=== PATIENT | female | born 1950 | race Caucasian/White ===

== ENCOUNTER → 2016-08-20 | Outpatient (CLI) | payer OTHER | LOC: FIMAGING 09:05 | DX: Z12.31 Encounter for screening mammogram for malignant neoplasm of breast (principal) | CPT/HCPCS: G0202 ==

== ENCOUNTER → 2016-12-17 | Outpatient (CLI) | payer OTHER | LOC: FIMAGING 14:38 | PROVIDERS: ATTEND Physician Assistant | DX: M75.112 Incomplete rotator cuff tear or rupture of left shoulder, not specified as traumatic (principal) ==

== ENCOUNTER → 2017-08-21 | Outpatient (CLI) | payer OTHER, MEDICARE | LOC: FIMAGING 10:16 | PROVIDERS: ATTEND Internal Medicine | DX: Z12.31 Encounter for screening mammogram for malignant neoplasm of breast (principal) ==

== ENCOUNTER → 2017-08-21 | Outpatient (CLI) | payer OTHER | LOC: FIMAGING 13:22 | PROVIDERS: ATTEND Internal Medicine | DX: E78.5 Hyperlipidemia, unspecified (principal) ==

== ENCOUNTER → 2017-12-19 | Outpatient (CLI) | payer OTHER, MEDICARE | LOC: FIMAGING 11:43 | PROVIDERS: ATTEND Internal Medicine | DX: R05 Cough (principal) ==

== ENCOUNTER 2017-12-26 16:35 | Emergency (ER) | payer OTHER, MEDICARE ==
[2017-12-26 16:52] VITALS: BP 123/74
--- NOTE | 2017-12-26 17:20 | EDPHY ---
HPI/HX/ROS/PE/MDM Narrative: CHIEF COMPLAINT: Back pain HISTORY OF PRESENT ILLNESS: The patient is a 67 y/o female with a history of L4-5 discectomy and hypertension complaining of right low back pain, onset yesterday. Yesterday she was doing more stretches and exercises and subsequently developed the right back pain. The pain does not feel similar to prior right sciatic nerve pain and the pain is not radiating into her right leg. The pain is making it difficult for her to move or lift her right leg. She denies numbness or tingling in her legs, slipping or falling. After developing this pain she started icing her back and took Advil without relief of her symptoms. Today the pain did not improve and it took her 2 hours to get out of bed. Due to this pain her PCP prescribed her Percocet, which she took at 1:30, 4 hours ago. After taking the Percocet she was able to walk with the assistance of a walker. Since the pain was so great, she decided to present to the emergency department. No fever, chills, chest pain, shortness of breath, palpitations, vomiting, diarrhea, urinary complaints, headache, lightheadedness. REVIEW OF SYSTEMS: Aside from elements discussed in the HPI, a comprehensive 10 system review of systems was reviewed and is negative. 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 HEENT: Atraumatic. Eyes: No icterus, no injection. Mouth: moist mucous membranes. No erythema or lesions. Neck: supple with no adenopathy. LUNGS: Clear to auscultation bilaterally, no wheezes, rhonchi or rales. CARDIAC: Regular rate and rhythm, no rubs, murmurs or gallops. ABDOMEN: Soft, nontender, nondistended, bowel sounds normal. BACK: Tenderness along the lumbar spine; the patient indicates that the area of most pain is around S1. No CVA tenderness. EXTREMITIES: No trauma. No edema. Range of motion is normal throughout. NEURO: Alert and oriented, grossly nonfocal. SKIN: Warm and dry, no rash. PSYCHIATRIC: Normal mentation, no agitation. Portions of this note were transcribed by a medical hospital sales. I personally performed a history, physical exam, medical decision making, and confirmed accuracy of information the transcribed note. ED Course: The patient is a 67 y/o female with a history of L4-5 discectomy and hypertension presenting with right low back pain, onset yesterday. On exam she has tenderness along the lumbar spine; the patient indicates that the area of most pain is around S1. She does not have any sciatic pain. Lumbar and pelvic x- ray ordered; 10mg PO Flexeril, 600mg PO Gabapentin, and lidocaine patch administered. 1834: There are no acute findings on patient's lumbar spine and pelvic x-rays. 1835: Reassessed patient and discussed imaging findings. I have prescribed her Flexeril and a Medrol-dose pack for her pain. She already has a prescription for Percocet. Return precautions provided; patient is comfortable with this plan. MDM: Diff dx for patient low back pain considered including but not limited to musculoskeletal causes, occult fracture, herniated disc, nerve compression, epidural abscess, discitis, cauda equina syndrome. - Data Points Imaging Results: Imaging Impressions Lumbar Spine X-Ray 12/26/17 17:26 Impression: 1. No acute findings in the lumbar spine. 2. Degenerative change and spondylolistheses, with moderate vertebral spondylosis at L3-L4. Pelvis X-Ray 12/26/17 17:27 Impression: No acute osseous findings. Imaging: Discussed imaging studies w/ scraper loader operator Radiologist, I viewed and interpreted images myself Medications Given: Discontinued Medications Cyclobenzaprine HCl (Flexeril) 10 mg PO EDNOW ONE Stop: 12/26/17 17:28 Last Admin: 12/26/17 17:32 Dose: 10 mg Cyclobenzaprine HCl (Flexeril 10 Mg Prepack#3) 1 btl TAKEHOME EDNOW ONE Stop: 12/26/17 18:41 Last Admin: 12/26/17 19:03 Dose: 1 btl Dexamethasone (Decadron) 8 mg PO EDNOW ONE Stop: 12/26/17 18:41 Last Admin: 12/26/17 19:03 Dose: 8 mg Gabapentin (Neurontin) 600 mg PO EDNOW ONE Stop: 12/26/17 17:28 Last Admin: 12/26/17 17:32 Dose: 600 mg Miscellaneous Medication (Icy Hot Lidocaine/Menthol 4%/1% Patch) 1 patch TD EDNOW ONE Stop: 12/26/17 17:28 Last Admin: 12/26/17 17:32 Dose: 1 patch General Time Seen by Provider: 12/26/17 17:14 Initial Vital Signs: Initial Vital Signs Temperature (C) 37.2 C 12/26/17 16:50 Heart Rate 101 H 12/26/17 16:50 Respiratory Rate 16 12/26/17 16:50 Blood Pressure 123/74 H 12/26/17 16:50 O2 Sat (%) 94 12/26/17 16:50 O2 Delivery Mode Room Air Allergies/Adverse Reactions: Sulfa (Sulfonamide Antibiotics) Allergy (Intermediate, Verified 12/26/17 16:48) Rash amoxicillin trihydrate [From Augmentin] Allergy (Verified 12/26/17 16:48) Anaphylaxis morphine Allergy (Verified 12/26/17 16:48) Itching Penicillins Allergy (Verified 12/26/17 16:48) Hives potassium clavula *RETIRED-12/30/11 [From Augmentin] Allergy (Verified 12/26/17 16:48) Anaphylaxis Home Medications: Medication Instructions Recorded CALCIUM CARBONATE/VITAMIN D3 1 each PO 04/18/12 [CALCIUM + D 600 MG TABLET] ESCITALOPRAM OXALATE [Lexapro] 20 mg PO HS 04/18/12 Estradiol/Norethindrone Acet PO DAILY06 04/18/12 [Activella 1 mg-0.5 mg Tablet] Olmesartan Medoxomil [Benicar 5 mg 5 mg PO DAILY06 04/18/12 (RX)] Pantoprazole Sodium [Protonix 40mg 40 mg PO DAILY06 04/18/12 (RX)] Celebrex PO PRN 12/19/15 Fish Oil PO DAILY 12/19/15 Wellbutrin 150mg SR (*) PO BID 12/19/15 Cyclobenzaprine [Flexeril 10 MG 10 mg PO TID PRN #15 tab 12/26/17 (*)] Percocet 10-325 mg Tablet 12/26/17 methylPREDNISolone [Medrol Dose 4 mg PO DAILY #1 each 12/26/17 Luis Enrique] Departure - Departure Disposition: Home, Routine, Self-Care Clinical Impression: Back pain Qualifiers: Back pain location: low back pain Chronicity: acute Back pain laterality: right Sciatica presence: without sciatica Qualified Code(s): M54.5 - Low back pain Condition: Good Instructions: Back Pain (ED), Lower Back Exercises (ED) Additional Instructions: Mainstay of therapy is rest, ice, anti-inflammatories, pain medications, and muscle relaxants as much as possible. Apply ice for 20-30 minutes every 2-3 hours for the next 48 hours. After 48 hours, a heating pad or hot tub may feel better. Use ibuprofen 600 mg every 6-8 hours on a regular basis to provide pain relief and anti-inflammatory effects. Okay to use Percocet as needed for severe pain. Use Flexeril 10 mg up to 3 times a day for muscle spasm. Take the Medrol dose pack as prescribed. Followup with the physician as directed. Consider physical therapy or chiropractic followup. Return to the emergency department or seek care urgently if you have worsening pain, pain radiating into the legs, weakness, numbness or tingling, difficulties with bowel or bladder, or other concerns. Referrals: Lupillo Payton MD [Primary Care Provider] - As per Instructions Prescriptions: Cyclobenzaprine [Flexeril 10 MG (*)] 10 mg PO TID PRN #15 tab PRN Reason: Spasms methylPREDNISolone [Medrol Dose Luis Enrique] 4 mg PO DAILY #1 each Report Scribed for: Rut Apodaca Report Scribed by: Adamaris Aleman Date of Report: 12/26/17 Time of Report: 17:19
[2017-12-26] MEDS ORDERED: LIDOCAINE 4%/MENTHOL 1% PATCH TD ONE (17:27)
[2017-12-26] MEDS ORDERED: CYCLOBENZAPRINE 10 MG TAB PO ONE (17:27)
[2017-12-26] MEDS ORDERED: GABAPENTIN 300 MG CAP PO ONE (17:27)
[2017-12-26] MEDS ORDERED: DEXAMETHASONE 4 MG TAB PO ONE (18:40)
[2017-12-26] MEDS ORDERED: CYCLOBENZAPRINE 10MG PREPACK#3 BTL TAKEHOME ONE (18:40)
[2017-12-26] MEDS ORDERED: PATCH REMOVAL 1 EA PATCH TD SCH (21:00)
== END 2017-12-26 18:49 | disposition home or self-care (01) ==
DX: M54.5 Low back pain (principal)

== ENCOUNTER → 2018-01-01 | Outpatient (CLI) | payer OTHER, MEDICARE | LOC: FIMAGING 18:44 | PROVIDERS: ATTEND Internal Medicine | DX: M51.36 Other intervertebral disc degeneration, lumbar region (principal); M48.062 Spinal stenosis, lumbar region with neurogenic claudication ==

== ENCOUNTER 2018-01-07 17:12 | Emergency (ER) | payer OTHER, MEDICARE ==
[2018-01-07 17:20] VITALS: BP 132/73
--- NOTE | 2018-01-07 17:44 | EDPHY ---
H & P Stated Complaint: back pain 2 weeks finished prednisone out of percocet not better Time Seen by Provider: 01/07/18 17:38 - Personal History Current Tetanus Diphtheria and Acellular Pertussis (TDAP): Unsure - Medical/Surgical History Hx Asthma: No Hx Chronic Respiratory Disease: No Hx Diabetes: No Hx Cardiac Disease: No Hx Renal Disease: No Hx Cirrhosis: No Hx Alcoholism: No Hx HIV/AIDS: No Hx Splenectomy or Spleen Trauma: No Other PMH: HTN, - Social History Smoking Status: Never smoked Constitutional: Initial Vital Signs Temperature (C) 37 C 01/07/18 17:17 Heart Rate 104 H 01/07/18 17:17 Respiratory Rate 17 01/07/18 17:17 Blood Pressure 132/73 H 01/07/18 17:17 O2 Sat (%) 96 01/07/18 17:17 O2 Delivery Mode Room Air Allergies/Adverse Reactions: Sulfa (Sulfonamide Antibiotics) Allergy (Intermediate, Verified 01/07/18 17:15) Rash amoxicillin trihydrate [From Augmentin] Allergy (Verified 01/07/18 17:15) Anaphylaxis potassium clavula *RETIRED-12/30/11 [From Augmentin] Allergy (Verified 01/07/18 17:15) Anaphylaxis Home Medications: Medication Instructions Recorded CALCIUM CARBONATE/VITAMIN D3 1 each PO 04/18/12 [CALCIUM + D 600 MG TABLET] ESCITALOPRAM OXALATE [Lexapro] 20 mg PO HS 04/18/12 Estradiol/Norethindrone Acet PO DAILY06 04/18/12 [Activella 1 mg-0.5 mg Tablet] Olmesartan Medoxomil [Benicar 5 mg 5 mg PO DAILY06 04/18/12 (RX)] Pantoprazole Sodium [Protonix 40mg 40 mg PO DAILY06 04/18/12 (RX)] Celebrex PO PRN 12/19/15 Fish Oil PO DAILY 12/19/15 Wellbutrin 150mg SR (*) PO BID 12/19/15 Cyclobenzaprine [Flexeril 10 MG 10 mg PO TID PRN #15 tab 12/26/17 (*)] oxyCODONE IR [Oxycodone Ir (*)] 5 - 10 mg PO Q6 PRN #30 tab 01/07/18 Medical Decision Making ED Course/Re-evaluation: CHIEF COMPLAINT: Back pain HISTORY OF PRESENT ILLNESS: This patient is a 67 year old female with history of hypertension complaining of back pain. About two weeks ago, she developed low back pain after frequent coughing associated with bronchitis. This discomfort became increasingly severe and she was evaluated in the ED. X-ray negative at that time; she took a Medrol Dosepak and Flexeril as well as Percocet for pain relief which helped relieve her symptoms temporarily. Her PCP ordered an MRI and relayed the results, she understood there was nothing too serious and her pain should resolve soon. Since that time however, her pain has become more severe and she ran out of her prescription for Percocet. She is nearly immobile due to pain and has been unable to go about her usual activities. Today, the pain began to radiate from her low back down both legs to her knees, and she presents for evaluation. She had a prior microdiscectomy with Dr. Hansen, neurosurgeon, and tried to schedule an appointment with his office but was unable to be seen until mid January. She denies any recent trauma. No headache, lightheadedness, chest pain , shortness of breath, incontinence of bladder or bowels, or other associated symptoms. REVIEW OF SYSTEMS: A 10 point review of systems was performed and is negative with the exception of the elements mentioned in the history of present illness. PHYSICAL EXAM: HR, BP, O2 Sat, RR. Temp noted General Appearance: Alert, well hydrated, appropriate, and non-toxic appearing. Head: Atraumatic without scalp tenderness or obvious injury Eyes: Pupils equal, round, reactive to light and accommodation, EOMI, no trauma , no injection. Ears: Clear bilaterally, no perforation, normal landmarks Nose: Atraumatic, no rhinorrhea, clear. Throat: There is no erythema or exudates, no lesions, normal tonsils, mucus membranes moist. Neck: Supple, 2+ carotid upstroke, nontender, no lymphadenopathy. Respiratory: No retractions, no distress, no wheezes, and no accessory muscle use. Lungs are clear to auscultation bilaterally. Cardiovascular: Regular rate and rhythm, no murmurs, rubs, or gallops. Bilateral carotid, radial, dorsalis pedis, and posterior tibial pulses intact. Good capillary refill all extremities. Gastrointestinal: Abdomen is soft, nontender, non-distended, no masses, no rebound, no guarding, no peritoneal signs. Musculoskeletal: Normal active ROM of all extremities, atraumatic. Neurological: Alert, appropriate, and interactive. The patient has normal DTRs and non-focal cranial nerves, motor, sensory, and cerebellar exam. Skin: No rashes, good turgor, no nodules on palpation. Past medical history: Hypertension. Past surgical history: Microdiscectomy. Family history: Noncontributory. Social history: Friend at bedside. Lives in [place]. Works as a physical therapist. Reviewed past medical records including MRI report from 01/01/18 and ED visit from 12/26/12. DIFFERENTIAL DIAGNOSIS: The differential diagnosis for the patient's back pain included but was not limited to musculo-skeletal pain, epidural abscess, herniated disk, spinal fracture, and intra-abdominal causes including urinary system. MEDICAL DECISION MAKIN67 y/o female presents with significant low back pain. She had recent MRI lumbar spine ordered by her primary care physician. She has completed a Medrol Dosepak without relief and continues to have significant pain. Reviewed imaging including MRI from 01/01/18. Patient has multilevel broad-based annular disc bulging with significant central spinal canal and neural foraminal encroachment at L3-L4 and L4-L5. Plan to consult with neurosurgery. 17:[address] Boone, neurosurgeon. He will see the patient tomorrow at 1 :00pm. Reassessed patient. Plan to discharge home in good condition with prescription for oxycodone IR for pain relief. She will follow up with neurosurgery tomorrow as directed. Return precautions discussed. She is comfortable with this plan. - Data Points Medications Given: Discontinued Medications Oxycodone/Acetaminophen (Percocet 5/325) 2 tab PO EDNOW ONE Stop: 01/07/18 17:53 Last Admin: 01/07/18 17:59 Dose: 2 tab Departure - Departure Disposition: Home, Routine, Self-Care Clinical Impression: Back pain Qualifiers: Back pain location: low back pain Chronicity: acute Back pain laterality: bilateral Sciatica presence: with sciatica Sciatica laterality: bilateral sciatica Qualified Code(s): M54.42 - Lumbago with sciatica, left side Condition: Good Instructions: Oxycodone, Rapid Release (By mouth), Acute Low Back Pain (ED) Additional Instructions: Call Dr. Blaine Boone's office tomorrow morning. He will see you at 1:00 p.m. tomorrow without fail. Referrals: Lupillo Payton MD [Primary Care Provider] - As per Instructions Kain Boone MD [Medical Doctor] - As per Instructions Prescriptions: oxyCODONE IR [Oxycodone Ir (*)] 5 - 10 mg PO Q6 PRN #30 tab PRN Reason: Pain, Severe Report Scribed for: Jose Jc Report Scribed by: Colleen Davis Date of Report: 01/07/18 Time of Report: 18:00
[2018-01-07] MEDS ORDERED: OXYCODONE/APAP 5/325 TAB PO ONE (17:52)
== END 2018-01-07 18:29 | disposition home or self-care (01) ==
DX: M54.42 Lumbago with sciatica, left side (principal); I10 Essential (primary) hypertension

== ENCOUNTER → 2018-02-17 | Outpatient (CLI) | payer OTHER, MEDICARE | LOC: FIMAGING 18:34 | PROVIDERS: ATTEND Neurological Surgery | DX: R29.2 Abnormal reflex (principal); M54.2 Cervicalgia; M50.30 Other cervical disc degeneration, unspecified cervical region ==

== ENCOUNTER → 2018-08-21 | Outpatient (CLI) | payer OTHER, MEDICARE ==
[~2018-08-21] MED LIST: GADOBUTROL 10 ML VIAL IVP ONE
== END ==
LOC: FIMAGING 11:30
PROVIDERS: ATTEND Orthopaedic Surgery Orthopaedic Surgery of the Spine
DX: M51.36 Other intervertebral disc degeneration, lumbar region (principal); M12.88 Other specific arthropathies, not elsewhere classified, other specified site; M99.73 Connective tissue and disc stenosis of intervertebral foramina of lumbar region; M51.34 Other intervertebral disc degeneration, thoracic region; M48.061 Spinal stenosis, lumbar region without neurogenic claudication
CPT/HCPCS: 72158; A9585

== ENCOUNTER → 2018-08-24 | Outpatient (CLI) | payer OTHER, MEDICARE | LOC: FIMAGING 09:23 | PROVIDERS: ATTEND Internal Medicine | DX: Z12.31 Encounter for screening mammogram for malignant neoplasm of breast (principal) ==